=== PATIENT | male | born 1945 | race Caucasian/White ===

== ENCOUNTER 2016-10-24 07:37 | Day surgery (SDC) | payer MEDICARE ==
[~2016-10-24] VITALS: Ht 185.4 cm; Wt 132.2 kg
--- NOTE | ~2016-10-24 | OR ---
PATIENT'S NAME: BERNICE LOWERY [facility] AGE: 71 Y [address] ROOM: [place] [id number] LOCATION: [facility] [place] [facility] [place] ADMIT DATE: 10/24/2016 OR/Procedure Report DISCHARGE DATE: FAMILY PHYSICIAN: Adebayo Spicer MD ATTENDING PHYSICIAN: Shady Cutler SURGEON: Shady Cutler MD MACHINE BENDER: DATE OF PROCEDURE: 10/24/2016 PREOPERATIVE DIAGNOSES: 1. Bulbourethral stricture. 2. Benign prostatic hypertrophy with lower urinary tract symptoms. POSTOPERATIVE DIAGNOSES: 1. Bulbourethral stricture. 2. Benign prostatic hypertrophy with lower urinary tract symptoms. PROCEDURES PERFORMED: Cystoscopy, DVIU, and TURP. ANESTHESIA: General. COMPLICATIONS: None. INDICATION FOR PROCEDURE: The patient is a 71-year-old male with obstructive voiding symptoms. Office cystoscopy revealed a bulbourethral stricture along with moderate prostatic enlargement. DETAILS OF PROCEDURE: After informed consent obtained, the patient was taken to the operating room. A general anesthetic was applied. He was placed in the dorsal lithotomy position. The groin area was prepped and draped in normal sterile fashion. Cystoscope was introduced into the urethra. Upon entering the area of the bulbar urethra, the stricture was visualized. It was not tight, but I was unable to pass the scope beyond it. I then placed the urethrotome into the area of the bulbar urethra and then using a cold blade, cuts were made at the 12 o'clock position in the stricture, opening it up to bleeding tissue and I was able to advance the urethrotome all the way into the bladder. Following that, the urethrotome was removed and the resectoscope sheath was introduced to the bladder under direct visualization. I then introduced the resectoscope and began resecting the prostate at the floor to the verumontanum. I then resected lateral tissues. I continued resecting lateral tissues and then finally anterior tissue that was dropping down after resection of the floor and lateral lobes. The bladder was empty of chips, further resection was completed down to the crossing fibers. Bleeding areas were then fulgurated for hemostasis. Following this, a 22-Urdu three-way Howard catheter was placed under [id number] traction. The patient PATIENT'S NAME: BERNICE LOWERY [facility] AGE: 71 Y [address] ROOM: [address] [address] LOCATION: [facility] [place] [facility] [place] ADMIT DATE: 10/24/2016 OR/Procedure Report DISCHARGE DATE: FAMILY PHYSICIAN: Adebayo Spicer MD ATTENDING PHYSICIAN: Shady Cutler tolerated the procedure well and transferred to recovery room in good condition. MD MARTINA CARRASQUILLO/modl /[id number] CC: MD Tres Wang MD d: 10/25/16 0032 t: 11/15/16 1501, OPERATIVE SUMMARY
[~2016-10-24 07:37] MED LIST: COREG25 MG PO; CPAP INH; DESYREL50 MG PO; ELIQUIS5 MG PO; GLUCOPHAGE850 MG PO; HUMALOG100 UNIT/3 SUB-Q; LANTUS (IN100 UNIT/M SUB-Q; LASIX80 MG PO; MIRALAX17 GM PO; NEURONTIN600 MG PO; PRILOSEC20 MG PO; SUBOXONE 8 MG-1 EACH SL; ZESTRIL40 MG PO; ZOCOR80 MG PO; ZOLPIDEM TART12.5 MG PO
[2016-10-24] MEDS ORDERED: PROZAC20 MG PO (08:21)
[2016-10-24 08:36] LABS: BASOPHIL % 0.8 %; EOSINOPHIL # 0.5 K/uL (0.0-0.5); EOSINOPHIL % 9.9 %; HEMOGLOBIN 9.6 g/dL (11.0-16.0); LYMPHOCYTE # 1.9 K/uL (0.8-4.0); LYMPHOCYTE % 37.2 %; MCH 24.4 pg (27.0-34.0); MCV 81.2 fl (83.0-98.0); MONOCYTE # 0.5 K/uL (0.0-1.0); MONOCYTE % 10.7 %; MPV 11.3 fl (9.4-12.4); NEUTROPHIL # (ANC) 2.1 K/uL (1.4-9.0); NEUTROPHIL % 41.4 %; NRBC % 0 /100WBC (0-0.00); PLATELET COUNT 237 K/uL (150-450); RBC 3.94 M/uL (3.50-5.50); RDW-CV 14.3 % (11.9-14.6); WBC 5.1 K/uL (4.0-11.0)
[2016-10-24 08:45] LABS: ALBUMIN 3.3 gm/dL (3.5-5.0); CALCIUM 8.6 mg/dL (8.5-10.5); CREATININE 1.4 mg/dL (0.6-1.3); TOTAL BILIRUBIN 0.3 mg/dL (0.0-1.5); TOTAL PROTEIN 6.6 g/dL (6.0-8.4)
--- NOTE | 2016-10-24 17:48 | NUR ---
AAOx3. Cooperative with cares. On bedrest. CBI running slow w/clear output. Gave Toradol IVx1. Tolerating PO well. S/L'd LFA IV. Advanced to surgical soft. Postop VSS and completed. Afebrile. On 2liters O2. Has home CPAP but doesn't use. BS AC/HS Moderate SSI and scheduled.
--- NOTE | 2016-10-25 03:53 | NUR ---
Pt. AA&OX3. Bedrest. Tylenol given at 1900 and norco last given at 2139. CBI with light, yellow urine draining. VSS. ACCU Checks ACHS. Refused 2099 Accucheck. Has CPAP but does not wear it. RT put 2L O2 on him. Slept well through the night. Tolerating regular diet well.
--- NOTE | 2016-10-25 09:56 | NUR ---
ORDERS RECEIVED FOR THE PATIENT TO BE DISCHARGED TO HOME TODAY WITH AN INDWELLING URINARY CATHETER. DISCHARGE INSTRUCTIONS WERE PREPARED BY THE VIRTUAL NURSE BUT WILL BE DISCUSSED WITH THE PATIENT AT BEDSIDE BY THE PRIMARY NURSE PAMELA ADAIR. THE FOLLOWING INFORMATION WAS PREPARED INCLUDING [employer] TEACHING SHEETS PROVIDED: TRANSURETHRAL RESECTION OF THE PROSTATE (TURP) HOME CARE, TURP, CYSTOSCOPY, DISCHARGE INSTRUCTIONS FOR CARING FOR INDWELLING URINARY CATHETER, CARING FOR YOUR LEG BAG, EMPTYING AND CLEANING YOUR URINARY CATHETER BAG, LEVAQUIN ,TYLENOL WITH CODEINE AND PREVENTING DVT. FOLLOW UP APPOINTMENT WAS MADE BY THE PATIENT WITH HIS PCP-SOLIS TAMAYO APRN ON MondayOctober AT 10:30 AM TO REMOVE HIS URINARY CATHETER. ALSO A FOLLOW UP APPOINTMENT WAS MADE WITH DR. KEATING ON November AT 1:45 PM AT [facility].
[2016-10-25] MEDS ORDERED: TYLENOL WITH C1 EACH PO (10:01)
[2016-10-25] MEDS ORDERED: LEVAQUIN 250 M250 MG PO (10:03)
--- NOTE | 2016-10-25 13:23 | NUR ---
Patient educated on medications, followup appointments, blood clots, leg bag/catheter cares, postoperative transurethral resection of prostate instructions. Vital signs taken. IV discontinued. Patient taken by wheelchair with all personal belongings to main lobby for transport home with family friend.
== END 2016-10-25 11:48 | disposition disaster alternative care site (69) ==
LOC: GSDC 07:37 → GMSU 07:37 → GSDC 09:00 → GMSU 14:15 → GSDC 10-25 11:48
PROVIDERS: Urology
PROC: 0VT08ZZ Resection of Prostate, Via Natural or Artificial Opening Endoscopic (ICD-10-PCS; principal; 2016-10-24)
PROC: 0T7D8ZZ Dilation of Urethra, Via Natural or Artificial Opening Endoscopic (ICD-10-PCS; 2016-10-24)
DX: N40.1 Benign prostatic hyperplasia with lower urinary tract symptoms (principal); N13.8 Other obstructive and reflux uropathy; N35.9 Urethral stricture, unspecified; E11.9 Type 2 diabetes mellitus without complications; K21.9 Gastro-esophageal reflux disease without esophagitis; I25.10 Atherosclerotic heart disease of native coronary artery without angina pectoris; I10 Essential (primary) hypertension; G47.30 Sleep apnea, unspecified; E66.9 Obesity, unspecified; Z68.38 Body mass index [BMI] 38.0-38.9, adult; Z87.891 Personal history of nicotine dependence
CPT/HCPCS: C1769; J1170; J1885; J1956; J3010; J7030